=== PATIENT | female | born 1945 | race Caucasian/White ===

== ENCOUNTER → 2017-02-27 | Outpatient (CLI) | payer MEDICARE, BC ==
[~2017-02-27] MED LIST: ASPI325T6 PO; COUMADIN 3MG3 MG/TAB PO; FERROUS SU325 MG/TAB PO; FOLIC ACID 40400 MCG PO; HCTZ 25MG TAB25 MG PO; KLOR-CON 1010 MEQ PO; LASIX 20MG TABL20 MG PO; LISINOPRIL; NEURONTIN300 MG/CAP PO; NORCO 325 MG-51 TAB PO; NORCO 325 MG-7.1 TAB PO; PERCOCET 325 MG1 TA2 PO; PRILOSEC 20MG20 MG PO; ROXICODONE 55 MG/TAB PO; ULTRAM 50MG TAB50 MG PO; VITAMIN C500 MG PO
== END ==
LOC: MC.RAD 11:40
DX: Z12.31 Encounter for screening mammogram for malignant neoplasm of breast (principal)

== ENCOUNTER 2017-05-28 09:29 | Emergency (ER) | payer MEDICARE, BC ==
[~2017-05-28] VITALS: Ht 170.2 cm; Wt 104.5 kg
[2017-05-28 09:34] VITALS: BP 141/65; PULSE 75; TEMP 98
[2017-05-28] MEDS ORDERED: AMOXICILLIN 8751 TAB PO (10:05)
[2017-05-28] MEDS ORDERED: NEURONTIN400 MG/CAP PO (10:07)
[2017-05-28] MEDS ORDERED: ASPIRIN 81M81 MG/TA2 PO (10:10)
[2017-05-28] MEDS ORDERED: LIPITOR 40MG TA40 MG PO (10:12)
[2017-05-28] MEDS ORDERED: ATROVENT I0.2 MG/1 M IH (10:12)
[2017-05-28] MEDS ORDERED: RT ALBUTER2.5 MG/0.5 IH (10:13)
[2017-05-28] MEDS ORDERED: BROVANA15 MCG/2 M IH (10:14)
[2017-05-28 10:15] LABS: BASO % 0.5 % (0.0-2.0); EOS # 0.2 (0.0-0.7); EOS % 2.6 % (0-4.0); GRAN # 4.9 (1.4-6.5); GRAN % 75.3 % (42.2-75.2); HEMOGLOBIN 15.3 g/dl (12.5-16.0); LYMPH # 0.9 (1.2-3.4); LYMPH % 14.4 % (20.0-51.0); MEAN CELL VOLUME 95 fl (80.0-100.0); MEAN CORPUSCULAR HEMOGLOBIN 32 pg (27.0-31.0); MEAN CORPUSCULAR HGB CONC 34 g/dl (33.0-37.0); MEAN PLATELET VOLUME 10.4 fl (7.4-10.4); MONO # 0.4 (0.1-0.6); MONO % 6.7 % (1.7-9.3); PLATELET COUNT 189 K/mm3 (130-400); RED BLOOD COUNT 4.72 M/mm3 (4.10-5.30); WHITE BLOOD COUNT 6.4 K/mm3 (4.8-10.8)
[2017-05-28] MEDS ORDERED: VENTOLIN0.09 MG IH (10:15)
[2017-05-28] MEDS ORDERED: NORVASC 5MG5 MG/TAB PO (10:15)
[2017-05-28 10:28] LABS: C-REACTIVE PROTEIN 1.5 mg/dL (0.0-0.9); CALCIUM 8.7 mg/dL (8.4-10.2); CREATININE, serum 0.93 mg/dL (0.52-1.25); POTASSIUM 3.6 mmol/L (3.4-5.0); URIC ACID 8.9 mg/dL (2.5-6.2)
[2017-05-28 10:40] LABS: ERYTHROCYTE SEDIMENTATION RATE 14 mm/hr (0-30)
[2017-05-28 12:41] LABS: SYNOVIAL FL. MONONUCLEAR 24.1 % (0-75); SYNOVIAL FL. POLYMORPHONUCLEAR 75.9 % (0-25); SYNOVIAL FLUID RBC 1000 /mm3 (0-0); SYNOVIAL FLUID WBC 3677 /mm3 (200-600)
[2017-05-28 12:42] LABS: SYNOVIAL FLUID COLOR YELLOW
[2017-05-28 12:44] LABS: SYNOVIAL FLUID APPEARANCE HAZY
[2017-05-28] MEDS ORDERED: NORCO 325 MG-51 TAB PO (12:52)
[2017-05-28] MEDS ORDERED: PREDNISONE10 MG PO (12:52)
[2017-05-29 10:08] LABS: SYN APPEARANCE Cloudy (()); SYN COLOR Yellow (())
== END 2017-05-28 13:53 | disposition home or self-care (01) ==
LOC: COL.ER 09:29
PROVIDERS: Emergency Medicine
DX: M10.9 Gout, unspecified (principal); I25.10 Atherosclerotic heart disease of native coronary artery without angina pectoris; Z79.82 Long term (current) use of aspirin; Z95.1 Presence of aortocoronary bypass graft
CPT/HCPCS: J7512

== ENCOUNTER → 2017-07-18 | Outpatient (CLI) | payer MEDICARE, BC ==
[~2017-07-18] VITALS: Ht 170.2 cm; Wt 104.0 kg
[~2017-07-18] MED LIST changes: +AMOXICILLIN 8751 TAB PO; +ASPIRIN 81M81 MG/TA2 PO; +ATROVENT I0.2 MG/1 M IH; +BROVANA15 MCG/2 M IH; +LIPITOR 40MG TA40 MG PO; +NEURONTIN400 MG/CAP PO; +NORVASC 5MG5 MG/TAB PO; +PREDNISONE10 MG PO; +RT ALBUTER2.5 MG/0.5 IH; +VENTOLIN0.09 MG IH
[2017-07-18 11:21] VITALS: BP 132/83; PULSE 64
== END ==
LOC: COL.RAD 11:02
DX: K11.8 Other diseases of salivary glands (principal)
CPT/HCPCS: 13756

== ENCOUNTER → 2019-06-24 | Outpatient (CLI) | payer MEDICARE, BC | LOC: MC.RAD 11:28 | DX: Z12.31 Encounter for screening mammogram for malignant neoplasm of breast (principal) ==

== ENCOUNTER → 2020-08-25 | Outpatient (CLI) | payer MEDICARE, BC | LOC: MC.RAD 07-22 14:15 | DX: Z12.31 Encounter for screening mammogram for malignant neoplasm of breast (principal) ==

== ENCOUNTER 2021-01-31 11:26 | Emergency (ER) | payer MEDICARE, BC ==
[~2021-01-31] VITALS: Ht 170.2 cm; Wt 90.9 kg
[2021-01-31 11:47] VITALS: TEMP 97.3
[2021-01-31] MEDS ORDERED: VOLTAREN GEL 1%1 TU TP (14:44)
[2021-01-31 15:35] VITALS: BP 107/72; PULSE 89
== END 2021-01-31 15:35 | disposition home or self-care (01) ==
LOC: COL.ER 11:26
DX: S80.02XA Contusion of left knee, initial encounter (principal); M17.12 Unilateral primary osteoarthritis, left knee; I10 Essential (primary) hypertension; I25.10 Atherosclerotic heart disease of native coronary artery without angina pectoris; Z95.9 Presence of cardiac and vascular implant and graft, unspecified; Z87.891 Personal history of nicotine dependence; Z79.82 Long term (current) use of aspirin; Z79.899 Other long term (current) drug therapy; W19.XXXA Unspecified fall, initial encounter; W22.8XXA Striking against or struck by other objects, initial encounter; Y93.H2 Activity, gardening and landscaping

== ENCOUNTER 2021-06-10 19:26 | Emergency (ER) | payer MEDICARE, BC ==
[~2021-06-10] VITALS: Ht 170.2 cm; Wt 127.3 kg
[~2021-06-10 19:26] MED LIST changes: +VOLTAREN GEL 1%1 TU TP
[2021-06-10] MEDS ORDERED: PERCOCET 325 MG1 TA2 PO (21:23)
[2021-06-10] MEDS ORDERED: CRUTCHES MC (21:31)
[2021-06-11 05:27] VITALS: BP 142/83; PULSE 90; TEMP 97.9
== END 2021-06-10 22:20 | disposition home or self-care (01) ==
LOC: COL.ER 19:26
DX: S82.024A Nondisplaced longitudinal fracture of right patella, initial encounter for closed fracture (principal); I10 Essential (primary) hypertension; I25.10 Atherosclerotic heart disease of native coronary artery without angina pectoris; Z87.891 Personal history of nicotine dependence; Z79.82 Long term (current) use of aspirin; Z79.899 Other long term (current) drug therapy; W01.0XXA Fall on same level from slipping, tripping and stumbling without subsequent striking against object, initial encounter

== ENCOUNTER → 2021-10-11 | Outpatient (CLI) | payer MEDICARE, BC ==
[~2021-10-11] MED LIST changes: +CRUTCHES MC
== END ==
LOC: MC.RAD 10:52
DX: Z12.31 Encounter for screening mammogram for malignant neoplasm of breast (principal)